=== PATIENT | female | born 1995 | race Caucasian/White ===

== ENCOUNTER 2021-01-06 12:15 | Emergency (ER) | payer MEDICAID ==
[~2021-01-06] VITALS: Ht 154.9 cm; Wt 64.2 kg
[2021-01-06 12:30] VITALS: BP 119/78
--- NOTE | 2021-01-06 15:29 | NUR ---
Second call, not in lobby
--- NOTE | 2021-01-06 15:50 | NUR ---
Third call, not in lobby
== END 2021-01-06 15:53 | disposition left against medical advice (07) ==
LOC: ER 12:16
DX: M54.9 Dorsalgia, unspecified (principal); Z53.21 Procedure and treatment not carried out due to patient leaving prior to being seen by health care provider
CPT/HCPCS: 93005